=== PATIENT | female | born 1955 | race Caucasian/White ===

== ENCOUNTER 2019-04-23 11:29 | Emergency (ER) | payer MEDICARE ==
[~2019-04-23] VITALS: Ht 160 cm; Wt 93.0 kg
[2019-04-23 12:13] LABS: CLARITY,URINE CLEAR (Clear); COLOR,URINE YELLOW (Yellow); GLUCOSE, URINE NEGATIVE (Neg); KETONES,URINE NEGATIVE (Neg); LEUKOCYTE ESTERASE ,URINE SMALL (Neg); NITRITES, URINE POSITIVE (Neg); OCCULT BLOOD,URINE LARGE (Neg); PH,URINE 5.5 (4.8-8.0); PROTEIN,URINE NEGATIVE (Neg); UROBILINOGEN,URINE 0.2 E.U/dL (0.2-1.0)
[2019-04-23 12:16] LABS: UA COLLECTION TYPE CLN CATCH MIDSTREAM
[2019-04-23 12:19] LABS: BACTERIA,URINE 2+ /HPF (Neg); WBC,URINE 20-30 /HPF (0-4)
[2019-04-23 12:20] LABS: MUCUS STRANDS FEW /LPF (Neg); SQUAMOUS EPITHELIAL CELL,UR FEW /LPF (FEW)
[2019-04-23] MEDS ORDERED: NITR100C6 PO (12:57)
[2019-04-23] MEDS ORDERED: PHEN-716 PO (12:57)
[2019-04-23] MEDS ORDERED: nitrofuran/nitrofuran macrocrysal 100 MG capsule PO ONE (13:05)
[2019-04-23 13:13] VITALS: BP 181/73
== END 2019-04-23 13:15 | disposition home or self-care (01) ==
LOC: ER 11:29
DX: N39.0 Urinary tract infection, site not specified (principal); M79.7 Fibromyalgia; Z90.710 Acquired absence of both cervix and uterus; Z98.84 Bariatric surgery status
CPT/HCPCS: 81001; 87077; 87088; 87186; 99283

== ENCOUNTER 2023-04-16 01:09 | Outpatient (CLI) | payer MEDICARE ==
[2023-04-16] VITALS (22 sets, daily range): BP systolic 108–143; BP diastolic 54–92; PULSE 54–66
[~2023-04-16 01:09] MED LIST: NITR100C6 PO; PHEN-716 PO
== END 2023-04-17 08:04 | disposition home or self-care (01) ==
LOC: CARD DIAG 01:09
PROVIDERS: ATTEND Internal Medicine Interventional Cardiology
DX: R55 Syncope and collapse (principal)
CPT/HCPCS: 93660

== ENCOUNTER 2023-09-01 23:59 | Emergency (ER) | payer MEDICARE ==
[~2023-09-01] VITALS: Ht 157.5 cm; Wt 84.1 kg
[2023-09-02 00:08] VITALS: TEMP 97.5
[2023-09-02] MEDS: acetaminophen 325mg tablet PO ONE (02:13)
[2023-09-02 02:30] VITALS: BP 119/61; PULSE 55; RESP 14; O2SAT 98
== END 2023-09-02 03:15 | disposition home or self-care (01) ==
LOC: ER 23:59
DX: M79.671 Pain in right foot (principal); M79.7 Fibromyalgia; Z90.710 Acquired absence of both cervix and uterus; Z79.899 Other long term (current) drug therapy; Z72.89 Other problems related to lifestyle
CPT/HCPCS: 73630; 99283; A6449; L4360